=== PATIENT | female | born 1985 | race Caucasian/White ===

== ENCOUNTER 2019-06-15 05:13 | Emergency (ER) | payer MEDICAID, SELFPAY ==
[2019-06-15 05:14] VITALS: BP 142/70; PULSE 90; RESP 16; TEMP 37; O2SAT 98; BMI 24.5
--- NOTE | 2019-06-15 05:47 | XR_ITS ---
WS: [id number] LUMBAR SPINE: 3 VIEWS TECHNIQUE: AP, lateral and L5-S1 spot. HISTORY: back pain COMPARISON: None available. Mild straightening of the normal lumbar spine. No fracture. Disc spaces are maintained. No loss of disc space or vertebral body height. SI joints are symmetric bilaterally. No soft tissue abnormalities. XR/XR lumbar spine 2-3V* [id number] IMPRESSION: Mild straightening of the normal lumbar lordosis may be due to spasm. No fractu re.
--- NOTE | 2019-06-15 05:49 | W.ED.BACK ---
HPI - Back Pain/Injury General: Chief Complaint: Back Pain/Injury Stated Complaint: BACK PAIN Time Seen by Provider: 06/15/19 05:22 History of Present Illness: MD elicited complaint: back pain Pertinent past history: prior back pain Onset (ago): hour(s) Timing: constant Severity: similar to previous episodes Similar Symptoms Previously: Yes Quality: stabbing Location: lumbar spine Radiation: none Exacerbating factors: movement Relieving factors: supine Context: while lifting and turning/twisting Associated symptoms: Deny chills, change in bowel habits, fecal incontinence, fever(s) or tingling/numbness/burning Review of Systems Const: Denies: fever or chills Eyes: Denies: change in vision ENMT: Denies: painful swallowing Card: Denies: chest pain or palpitations Resp: Denies: shortness of breath or productive cough GI: Denies: fecal incontinence or change in bowel habits : Denies: difficulty urinating or urinary incontinence Neuro: Denies: headache, numbness in extremities or weakness in extremities PFSH ED PFSH: Statuses (acute, chronic, etc) shown below reflect problem list status as previously entered and may not be historically accurate Social History Smoking and tobacco status: never smoked Physical Exam Const: COMMON NORMALS: no apparent distress and oriented x3 GENERAL APPEARANCE: cooperative HENMT: COMMON NORMALS: normocephalic and external nose normal HEAD & SCALP: normocephalic FACE & SINUS: normal facial exam NOSE: external nose normal Eye: COMMON NORMALS: PERRL and EOMs intact bilaterally PUPIL: Yes PERRL Chest: COMMONS NORMALS: inspection of chest normal Resp: COMMON NORMALS: normal respiratory effort, no retractions, no use of accessory muscles and clear to auscultation bilaterally AUSCULTATION: clear to auscultation bilaterally GI: COMMON NORMALS: soft to palpation INSPECTION: Yes normal to inspection AUSCULTATION: Yes hypoactive bowel sounds PALPATION: Yes soft and No tender : COMMON NORMALS: Yes no CVA tenderness BLADDER/KIDNEY EXAM: Yes no CVA tenderness Back/Pelvis: COMMON NORMALS: no CVA tenderness, thoracic and lumbar spine normal to inspection, no thoracic nor lumbar tenderness and straight leg raise negative bilaterally Neuro: COMMON NORMALS: oriented x3 Course ED course: 33-year-old female on chronic Suboxone therapy. She presents with back pain after picking up her son this morning. It was sudden onset. It is nonradicular. She is not experiencing any paresthesias or weakness. Pain is not reproducible by palpation of the lumbar spine on exam. Her straight leg raise testing is negative bilaterally. She is received 2 injections in the ER, and we will try to get her to move. X-ray shows no significant abnormality. she has walked in the room with much improvement in pain. Vital Signs: Vital signs: Vital Signs Temperature 98.6 F 06/15/19 05:14 Pulse Rate 90 06/15/19 05:14 Respiratory Rate 16 06/15/19 06:00 Blood Pressure 142/70 06/15/19 05:14 Pulse Oximetry 98 06/15/19 05:14 Discharge Plan Discharge Patient Disposition: Home, Self-Care Clinical Impression: Strain of lumbar region Qualifiers: Encounter type: initial encounter Qualified Code(s): S39.012A - Strain of muscle, fascia and tendon of lower back, initial encounter Condition: Stable Prescriptions: New cyclobenzaprine 10 mg tablet 10 mg PO Q8H Qty: 10 RF: 0 ketorolac 10 mg tablet 10 mg PO Q8H PRN (Reason: pain) Qty: 10 RF: 0 No Action Suboxone 8-2 mg Film 1 film BUCCAL DAILY RF: 0 Discharge Orders: Discharge Order (Routine); Ordered 06/15/19 Ordered By: Ariel Genao Referrals: Hernán Soni MD [Primary Care Provider] - 4-7 days Discharge Diet: Advance as tolerated Discharge Activity: Resume usual activity Patient Instructions: Acute Low Back Pain (ED) Activity Restrictions/Additional Instructions: Do not lift greater than 10 pounds for the next week. Watch bending and stooping. Medication as directed. Return for loss of control of your bowel or bladder function, significant weakness with dragging of foot, other concerning symptoms. Coding Level of Care Code ED [employer] for [employer] Exam Problem Focused
[2019-06-15 06:00] VITALS: RESP 16
[2019-06-15] MEDS: HYDROmorphone 1 mg/mL INJ 1 mL 2 MG IM (06:00)
[2019-06-15] MEDS: ketorolac 60 mg/2 mL INJ IM (06:01)
[2019-06-15] MEDS: dexamethasone 4 mg Tablet 8 MG PO (07:03)
[2019-06-15 07:04] VITALS: BP 124/61; PULSE 70; RESP 16; O2SAT 99
== END 2019-06-15 07:05 | disposition home or self-care (01) ==
PROVIDERS: Emergency Provider Emergency Medicine; Family Provider Family Medicine; PCP Family Medicine
DX: S39.012A Strain of muscle, fascia and tendon of lower back, initial encounter (principal); X58.XXXA Exposure to other specified factors, initial encounter
CPT/HCPCS: 72100; 96372; 99281; 99283; J1170; J1885; J8540